=== PATIENT | female | born 1985 | race Caucasian/White ===

== ENCOUNTER 2021-09-13 20:32 | Emergency (ER) | payer SELFPAY ==
[~2021-09-13] VITALS: Ht 162.6 cm; Wt 48.8 kg
[2021-09-13 20:53] VITALS: BP 129/92
== END 2021-09-13 23:25 | disposition left against medical advice (07) ==
LOC: ER 20:32
DX: Z53.21 Procedure and treatment not carried out due to patient leaving prior to being seen by health care provider (principal); J45.909 Unspecified asthma, uncomplicated; G43.909 Migraine, unspecified, not intractable, without status migrainosus; Z98.890 Other specified postprocedural states